=== PATIENT | male | born 1935 ===

== ENCOUNTER 2021-09-15 14:31 | Outpatient (CLI) | payer OTHER | END 2021-09-15 14:44 | disposition home or self-care (01) | LOC: RAD 14:31 | PROVIDERS: ATTEND Physical Medicine & Rehabilitation | DX: M25.551 Pain in right hip (principal) ==

== ENCOUNTER 2022-02-07 12:15 | Outpatient (CLI) | payer OTHER | END 2022-02-07 12:17 | disposition home or self-care (01) | LOC: RAD 12:15 | PROVIDERS: ATTEND Urology | DX: I11.9 Hypertensive heart disease without heart failure (principal) ==

== ENCOUNTER 2022-07-08 19:55 | Emergency (ER) | payer OTHER ==
[~2022-07-08] VITALS: Ht 170.2 cm; Wt 72.6 kg
[2022-07-08] MEDS ORDERED: FLOMAX (20:27)
[2022-07-08] MEDS ORDERED: TRICOR 145 MG (20:27)
[2022-07-08] MEDS ORDERED: LOSARTAN-HCTZ1 EAC1 (20:29)
[2022-07-08] MEDS ORDERED: FINASTERIDE 5 MG (20:29)
[2022-07-09] MEDS ORDERED: MUCINEX DM ER1 EAC1 PO (01:00)
[2022-07-09] MEDS ORDERED: ZITHROMAX500 MG PO (01:00)
== END 2022-07-09 01:20 ==
LOC: ER 19:55
DX: R41.82 Altered mental status, unspecified (principal); R50.9 Fever, unspecified; S09.90XA Unspecified injury of head, initial encounter; W18.30XA Fall on same level, unspecified, initial encounter; Y93.9 Activity, unspecified; Y92.019 Unspecified place in single-family (private) house as the place of occurrence of the external cause; Y99.9 Unspecified external cause status; Z20.822 Contact with and (suspected) exposure to COVID-19; I10 Essential (primary) hypertension